=== PATIENT | male | born 1960 | race Caucasian/White ===

== ENCOUNTER 2019-04-11 22:57 | Inpatient (IN) | payer OTHER ==
[~2019-04-11] VITALS: Ht 170.2 cm; Wt 101.4 kg
[~2019-04-11 22:57] MED LIST: AMIO200T4 PO; ATOR40TA68 PO; DILT120C77 PO
[2019-04-11] MEDS ORDERED: ASPIRIN 325 MG TAB PO STA (23:29)
[2019-04-11] MEDS ORDERED: DILTIAZEM 25 MG INJ IV STA (23:29)
[2019-04-11] MEDS ORDERED: DILTIAZEM-D5W 125MG/125ML DRIP 125 ML IV STA (23:55)
[2019-04-12] MEDS ORDERED: DILTIAZEM 60 MG TAB PO ONE
[2019-04-12] MEDS ORDERED: ACETAMINOPHEN 325 MG TAB PO PRN ×2 (01:00→04:00)
[2019-04-12] MEDS ORDERED: ONDANSETRON 4 MG INJ IV PRN ×2 (01:00→04:00)
[2019-04-12 03:27] VITALS: Ht 170.2 cm; Wt 101.4 kg
[2019-04-12 03:56] VITALS: BP 105/55; PULSE 95; RESP 21
[2019-04-12] MEDS ORDERED: NITROGLYCERIN (SL) 0.4 MG TAB SL PRN (04:00)
[2019-04-12] MEDS ORDERED: SOD CHLORIDE 0.9% 500 ML IV ONE (04:00)
[2019-04-12] MEDS ORDERED: NACL 0.9% 3 ML SYG IV SCH (04:00)
[2019-04-12 07:33] VITALS: BP 98/70; PULSE 88; RESP 20
[2019-04-12] MEDS ORDERED: ASPIRIN (EC) 325 MG TAB PO SCH (09:00)
[2019-04-12] MEDS ORDERED: ENOXAPARIN 40 MG/0.4 ML SYG SC SCH (09:00)
[2019-04-12 11:15] VITALS: BP 104/68; PULSE 88; RESP 20
[2019-04-12] MEDS: METOPROLOL (XL) 25 MG TAB PO SCH (14:20)
[2019-04-12 15:37] VITALS: BP 99/60; PULSE 104; RESP 18
[2019-04-12 19:03] VITALS: BP 100/76; PULSE 120; RESP 18
[2019-04-12] MEDS: DILTIAZEM-D5W 125MG/125ML DRIP 125 ML IV SCH (21:15)
[2019-04-12 23:48] VITALS: BP 116/69; PULSE 85; RESP 19
[2019-04-13 03:54] VITALS: BP 100/60; PULSE 106; RESP 20
[2019-04-13 07:33] VITALS: BP 104/71; PULSE 84; RESP 18
[2019-04-13] MEDS: METOPROLOL (XL) 25 MG TAB PO SCH (08:23)
[2019-04-13 11:46] VITALS: BP 102/68; PULSE 64; RESP 19
[2019-04-13] MEDS ORDERED: DIGOXIN 500 MCG INJ IV ONE (14:00)
[2019-04-13 15:27] VITALS: BP 124/75; PULSE 108; RESP 19
[2019-04-13] MEDS: DILTIAZEM 60 MG TAB PO SCH ×2 (15:43→18:00)
[2019-04-13] MEDS ORDERED: SOD CHLORIDE 0.9% 100 ML ONE (16:33)
[2019-04-13] MEDS ORDERED: IOHEXOL 100 ML ONE (16:33)
[2019-04-13 20:00] VITALS: BP 107/59; PULSE 86; RESP 18
[2019-04-13] MEDS: DILTIAZEM-D5W 125MG/125ML DRIP 125 ML IV SCH (20:39)
[2019-04-14] VITALS: BP 121/73; PULSE 61; RESP 18
[2019-04-14] MEDS: DILTIAZEM 60 MG TAB PO SCH ×3 (00:33→12:34)
[2019-04-14 04:00] VITALS: BP 123/69; PULSE 60; RESP 17
[2019-04-14 07:58] VITALS: BP 102/65; PULSE 103; RESP 22
[2019-04-14 11:11] VITALS: BP 102/66; PULSE 86; RESP 20
[2019-04-14 12:32] VITALS: BP 148/85; PULSE 113
[2019-04-14] MEDS: DILTIAZEM (CD) 120 MG CAP PO SCH ×2 (13:30→19:54)
[2019-04-14 19:45] VITALS: BP 109/69; PULSE 89; RESP 20
[2019-04-14] MEDS: DILTIAZEM-D5W 125MG/125ML DRIP 125 ML IV SCH (21:00)
[2019-04-15] VITALS (7 sets, daily range): BP systolic 102–149; BP diastolic 65–76; PULSE 50–99; RESP 17–20
[2019-04-15] MEDS: DILTIAZEM (CD) 120 MG CAP PO SCH ×2 (09:42→20:12)
[2019-04-15] MEDS: AMIODARONE 200 MG TAB PO SCH ×2 (14:34→20:12)
[2019-04-15] MEDS: DILTIAZEM-D5W 125MG/125ML DRIP 125 ML IV SCH (20:02)
[2019-04-16] VITALS: BP 109/74; PULSE 79; RESP 19
[2019-04-16 04:00] VITALS: BP 107/71; PULSE 75; RESP 20
[2019-04-16 07:12] VITALS: BP 108/69; PULSE 69; RESP 17
[2019-04-16] MEDS: AMIODARONE 200 MG TAB PO SCH (09:29)
[2019-04-16] MEDS: DILTIAZEM (CD) 120 MG CAP PO SCH (09:29)
[2019-04-16 11:31] VITALS: BP 107/79; PULSE 103; RESP 17
== END 2019-04-16 14:30 | disposition home or self-care (01) | DRG 309 ==
LOC: E/R 22:57 → 6WM 04-12 00:32
PROVIDERS: ADMIT Internal Medicine; ATTEND Internal Medicine
DX: I48.0 Paroxysmal atrial fibrillation (principal); I31.3 Pericardial effusion (noninflammatory); I31.2 Hemopericardium, not elsewhere classified; I48.92 Unspecified atrial flutter; G51.0 Bell's palsy; F41.9 Anxiety disorder, unspecified
CPT/HCPCS: 36415; 71045; 71275; 80048; 80053; 80061; 80069; 82550; 82553; 83036; 83735; 83880; 84100; 84439; 84443; 84484; 85025; 85610; 85730; 93005; 93306; 93308; 96374; 96375; J1650; J7040; Q9967